=== PATIENT | male | born 1950 | race Caucasian/White ===

== ENCOUNTER 2019-07-21 15:27 | Inpatient (IN) | payer OTHER ==
[~2019-07-21] VITALS: Ht 188 cm; Wt 88.2 kg
[2019-07-21 16:49] LABS: Basophils # (auto) 0.1 uL; Basophils % (auto) 1.2 % (0.0-2.0); Eosinophils # (auto) 0.2 uL; Eosinophils % (auto) 2.8 % (0.0-7.0); Hematocrit 43.7 % (41.0-53.0); Hemoglobin 14.8 g/dL (13.5-17.5); Lymphocytes # (auto) 2.8 uL; Lymphocytes % (auto) 32.3 % (10.0-50.0); Mean Corpuscular Hemoglobin 29.6 pg (28.0-32.0); Mean Corpuscular Hgb Conc. 33.8 g/dL (32.0-36.0); Mean Corpuscular Volume 87.5 fL (80.0-100.0); Monocytes # (auto) 0.8 uL; Monocytes % (auto) 9.3 % (0.0-12.0); Neutrophils # (auto) 4.7 uL; Neutrophils % (auto) 54.4 % (37.0-80.0); Nucleated Red Blood Cells % 0.1 %; Platelet Count (auto) 327 10^3/uL (140-450); Red Cell Distribution Width 13.8 % (11.8-14.3); White Blood Cell 8.7 10^3/uL (4.4-10.8)
[2019-07-21 17:08] LABS: Alanine Aminotransferase 16 U/L (16-61); Albumin 3.8 g/dL (3.4-5.0); Aspartate Aminotransferase 18 U/L (15-37); BUN/Creatinine Ratio 21.8; Blood Urea Nitrogen 24 mg/dL (7-18); Calcium 8.8 mg/dL (8.5-10.1); Carbon Dioxide 27 mmol/L (21-32); GFR African American 85 mL/min; GFR Non-African American 71 mL/min; Glucose 94 mg/dL (74-106)
[2019-07-21 17:10] LABS: Anion Gap 5 (5-15); Bilirubin, Total 0.5 mg/dL (0.2-1.0); Chloride 107 mmol/L (98-107); Potassium 4.3 mmol/L (3.5-5.1); Sodium 139 mmol/L (136-145); Total Protein 7.4 g/dL (6.4-8.2)
[2019-07-21 17:13] LABS: Alkaline Phosphatase 79 U/L (45-117)
[2019-07-21 19:03] LABS: INR 1.02 (0.9-1.15); Partial Thromboplastin Time 28.3 sec (23.64-32.05)
[2019-07-21] MEDS ORDERED: METOPROLOL TARTRATE 25 MG TAB PO ONE (20:15)
[2019-07-21] MEDS ORDERED: ACETAMINOPHEN 325 MG TAB PO PRN (20:30)
[2019-07-21 20:52] VITALS: BP 153/85
--- NOTE | 2019-07-21 22:20 | NUR ---
Telemetry admit from ER [facility] admitted to Telemetry unit. Patient oriented to Mane Conway, primary RN, unit, room, bed, and unit policies regarding patient care and visiting hours. Patient now on continuous telemetry monitoring, tele box # 6 and telemetry reading on arrival to unit is SR 62. Patient weighed by bedscale and encouraged to call if they need something. All questions and concerns addressed, patient verbalized understanding.
[2019-07-21] MEDS: HYDROcodone-ACET 10/325MG TAB PO PRN (22:30)
[2019-07-21] MEDS: traZODone HCL 50 MG TAB PO SCH (22:31)
[2019-07-21 22:45] VITALS: BP 158/83
--- NOTE | 2019-07-21 22:45 | NUR ---
Patient refused his blood pressure medication that was scheduled for tonight. He states that he only takes his blood pressure medication in the mornings. The patient has been educated about medication refusal.
[2019-07-21] MEDS ORDERED: TRAZ100T2 PO (23:06)
[2019-07-21] MEDS ORDERED: MET25T PO (23:06)
[2019-07-21] MEDS ORDERED: GABA-339 PO (23:06)
[2019-07-21] MEDS ORDERED: INFLUENZA QUAD 2019-2020 0.5ml SYRG IM ONE (23:15)
--- NOTE | 2019-07-22 00:25 | NUR ---
IV insertion IV access obtained, via clean sterile technique by inserting 22 gauge catheter at the right hand after 1 attempt(s). IV secured properly. No trauma to site. Patient tolerated well.
[2019-07-22 04:44] VITALS: BP 143/73
--- NOTE | 2019-07-22 05:55 | NUR ---
IV insertion IV access obtained, via clean sterile technique by inserting 20 gauge catheter at right FA after 1 attempt(s). IV secured properly. No trauma to site. Patient tolerated well.
[2019-07-22] MEDS: ALBUTEROL SULF 2.5 MG/0.5ML(0.5%) NEB SOLN NEB PRN ×2 (07:57→20:51)
--- NOTE | 2019-07-22 07:57 | NUR ---
Respiratory note: PATIENT RECEIVED PRN BREATHING TX PER PT REQUEST. PATIENT IS AWAKE AND ALERT, NO RESPIRATORY DISTRESS NOTED. PATIENT BREATH SOUNDS ARE CLEAR T/O, HR 53, RR 18, SPO2 97% ON ROOM AIR. PATIENT IS AWARE TO HAVE RT PAGED IF BREATHING TX IS NEEDED. WILL CONTINUE TO MONITOR PATIENT.
--- NOTE | 2019-07-22 08:00 | NUR ---
Opening Shift Note Assumed care of patient, awake and alert. No S/S of distress/SOB or pain. With 2 building guard deputy sheriff at the bedside. Instructed on POC and to call for assist PRN, will continue to monitor for changes Q1hr and PRN.
[2019-07-22] MEDS ORDERED: ADENOSINE 68 MG in GIVE UN-DILUTED 0 ML IV STA (08:27)
[2019-07-22 09:00] VITALS: BP 155/75
[2019-07-22] MEDS ORDERED: FINASTERIDE 5 MG TAB PO SCH (10:00)
--- NOTE | 2019-07-22 10:30 | NUR ---
Adenosine stress test done. Waiting for results.
[2019-07-22] MEDS: DOXAZOSIN MESYL 2 MG TAB PO SCH (10:37)
[2019-07-22] MEDS: LISINOPRIL 20 MG TAB PO SCH (10:37)
[2019-07-22] MEDS: ASPirin-EC 81 mg tab PO SCH (10:38)
[2019-07-22] MEDS: GABAPENTIN 400 MG CAP PO SCH (10:38)
[2019-07-22 13:00] VITALS: BP 150/81
--- NOTE | 2019-07-22 16:03 | NUR ---
Patient just had a shower. Back to bed. With 2 [facility] guards at bedside.
[2019-07-22 17:19] VITALS: BP 131/95
[2019-07-22] MEDS: FINASTERIDE 5 MG TAB PO SCH (18:47)
--- NOTE | 2019-07-22 20:30 | NUR ---
Paged RT for breathing treatment, per pt request.
[2019-07-22] MEDS: traZODone HCL 50 MG TAB PO SCH (21:17)
[2019-07-22 22:00] VITALS: BP 144/76
--- NOTE | 2019-07-23 02:44 | NUR ---
Paged Dr. Martinez for pt's afib RVR, pt asymptomatic, awaiting call back.
[2019-07-23 05:00] VITALS: BP 153/82
--- NOTE | 2019-07-23 07:27 | NUR ---
PT. DECLINED MN. TX. THIS AM., NO RESP. DISTRESS OR SOB NOTED. BS. ARE CLEAR, HR 55,RR 18,SP02 95% ON RA. PT. STATES HE DOESN'T NEED ONE RIGHT NOW AND WILL CALL WHEN HE NEEDS IT. NO TX. GIVEN AT THIS TIME.
[2019-07-23 09:00] VITALS: BP_SYST 149; BP_SYST 157; BP_DIAS 100; BP_DIAS 84
[2019-07-23] MEDS: GABAPENTIN 400 MG CAP PO SCH (09:17)
[2019-07-23] MEDS: DOXAZOSIN MESYL 2 MG TAB PO SCH (09:18)
[2019-07-23] MEDS: LISINOPRIL 20 MG TAB PO SCH (09:18)
[2019-07-23] MEDS: ASPirin-EC 81 mg tab PO SCH (09:19)
--- NOTE | 2019-07-23 09:35 | NUR ---
DR. Antony BETTENCOURT ROUNDED ON PT. PLAN OF CARE DISCUSSED; PT IN AGREEMENT WITH PLAN. MADE AWARE OF A-FIB EPISODE DURING LAST NIGHT. ORDERS FOR METOPROLOL AND NPO AFTER MIDNIGHT FOR Friday07/26/19 FOR [facility] RECEIVED; INPUT.
[2019-07-23] MEDS: METOPROLOL TARTRATE 25 MG TAB PO SCH ×2 (09:47→22:09)
[2019-07-23 13:00] VITALS: BP 158/85
[2019-07-23] MEDS: ALBUTEROL SULF 2.5 MG/0.5ML(0.5%) NEB SOLN NEB PRN (15:50)
[2019-07-23 17:00] VITALS: BP 153/62
[2019-07-23] MEDS: FINASTERIDE 5 MG TAB PO SCH (18:14)
--- NOTE | 2019-07-23 18:38 | NUR ---
RT NOTE PT WAS SEEN BY RT FOR PRN HHN TX. PT STATES NO TREATMENT NEEDED AT THIS TIME. NO SOB OR DISTRESS NOTED. HR 82, RR 16, BS CLEAR/DIMINISHED, POX 94% ON R/A. PT AWARE TO CALL IF TREATMENT NEEDED IN THE NIGHT. CONT ORDERED Addendum: 07/23/19 at 1852 by Celia Oro RT Amended: Links added.
--- NOTE | 2019-07-23 20:05 | NUR ---
Opening Shift Note Assumed care of patient, awake and alert. No S/S of distress/SOB or pain. Instructed on POC and to call for assist PRN, will continue to monitor for changes Q1hr and PRN.
[2019-07-23 22:00] VITALS: BP 156/86
[2019-07-23] MEDS: traZODone HCL 50 MG TAB PO SCH (22:10)
[2019-07-24 05:00] VITALS: BP 142/77
--- NOTE | 2019-07-24 07:32 | NUR ---
Opening Shift Note Assumed care of patient, awake and alert. No S/S of distress/SOB. Pt complaints of pain rated at a 5/10 described as a "head ache". Bed in lowest and locked position with side rails up x2 and call light in reach. Instructed on POC and to call for assist PRN, will continue to monitor for changes Q1hr and PRN.
[2019-07-24 09:00] VITALS: BP 180/75
[2019-07-24] MEDS: DOXAZOSIN MESYL 2 MG TAB PO SCH (09:38)
[2019-07-24] MEDS: METOPROLOL TARTRATE 25 MG TAB PO SCH (09:39)
[2019-07-24] MEDS: GABAPENTIN 400 MG CAP PO SCH (09:39)
[2019-07-24] MEDS: ASPirin-EC 81 mg tab PO SCH (09:39)
[2019-07-24] MEDS: LISINOPRIL 20 MG TAB PO SCH (09:40)
[2019-07-24] MEDS ORDERED: METOPROLOL TARTRATE 25 MG TAB PO ONE (11:30)
[2019-07-24 13:00] VITALS: BP 148/76
[2019-07-24] MEDS: ALBUTEROL SULF 2.5 MG/0.5ML(0.5%) NEB SOLN NEB PRN (14:12)
[2019-07-24 17:00] VITALS: BP 143/76
[2019-07-24] MEDS: FINASTERIDE 5 MG TAB PO SCH (17:38)
--- NOTE | 2019-07-24 19:30 | NUR ---
CARE ENDORSED TO CECILIA RNLENI.
--- NOTE | 2019-07-24 19:59 | NUR ---
Opening shift note Patient in bed sleeping with eyes closed. Pt's respiration even and unlabored. No non verbal cues to pain noted and observed. Guards at bedside, will continue to monitor.
[2019-07-24 21:21] VITALS: BP 139/65
[2019-07-24] MEDS ORDERED: METOPROLOL TARTRATE 25 MG TAB PO SCH (22:00)
[2019-07-24] MEDS: HYDROcodone-ACET 10/325MG TAB PO PRN (22:02)
[2019-07-24] MEDS: traZODone HCL 50 MG TAB PO SCH (22:03)
[2019-07-25 02:57] VITALS: BP 134/56
[2019-07-25 04:06] VITALS: BP 144/76
[2019-07-25 08:00] VITALS: BP 154/88
--- NOTE | 2019-07-25 10:00 | NUR ---
Respiratory note: PATIENT SEEN FOR MED-NEB TX. MED-NEB NOT INDICATED AT THIS TIME HE IS IN NO ACUTE RESPIRATORY DISTRESS AND DENIES NEED. PATIENT INSTRUCTED TO CALL FOR RT IF HE FELT THE NEED FOR TX AT A LATER TIME. SPO2 94% R/A
[2019-07-25] MEDS: ASPirin-EC 81 mg tab PO SCH (10:13)
[2019-07-25] MEDS: METOPROLOL SUCCINATE XL 50 MG TAB PO SCH (10:15)
[2019-07-25] MEDS: LISINOPRIL 20 MG TAB PO SCH (10:16)
[2019-07-25] MEDS: GABAPENTIN 400 MG CAP PO SCH (10:16)
[2019-07-25] MEDS: DOXAZOSIN MESYL 2 MG TAB PO SCH (10:29)
[2019-07-25 12:00] VITALS: BP 138/76
--- NOTE | 2019-07-25 12:59 | NUR ---
Nutrition Assessment Notes please see attached link for complete assessment Est. Needs BW [id number] kcal (25-30 kcal/kgBW), 87-104 gms pro (1.0-1.2 gms/kgBW). Will continue to monitor pertinent labs and reassess nutrient need prn Addendum: 07/25/19 at [address] Amended: Links added.
[2019-07-25 16:59] VITALS: BP 164/81
[2019-07-25] MEDS: FINASTERIDE 5 MG TAB PO SCH (18:15)
[2019-07-25 18:22] LABS: Basophils # (auto) 0.1 uL; Basophils % (auto) 1.2 % (0.0-2.0); Eosinophils # (auto) 0.2 uL; Eosinophils % (auto) 1.7 % (0.0-7.0); Hematocrit 46.1 % (41.0-53.0); Hemoglobin 15.7 g/dL (13.5-17.5); Lymphocytes % (auto) 27.6 % (10.0-50.0); Mean Corpuscular Hemoglobin 29.8 pg (28.0-32.0); Mean Corpuscular Volume 87.5 fL (80.0-100.0); Monocytes # (auto) 0.9 uL; Monocytes % (auto) 8.6 % (0.0-12.0); Neutrophils # (auto) 6.6 uL; Neutrophils % (auto) 60.9 % (37.0-80.0); Nucleated Red Blood Cells % 0.1 %; Platelet Count (auto) 325 10^3/uL (140-450); Red Blood Cells 5.27 10^6/uL (4.5-5.90); Red Cell Distribution Width 14.1 % (11.8-14.3); White Blood Cell 10.8 10^3/uL (4.4-10.8)
[2019-07-25 18:49] LABS: BUN/Creatinine Ratio 18.8; Calcium 8.9 mg/dL (8.5-10.1); Potassium 4.5 mmol/L (3.5-5.1)
--- NOTE | 2019-07-25 20:10 | NUR ---
PT ASSESSED FOR PRN MED NEB TX. SPO2 92% ON RA, HR 65. PT DENIES ANY RESPIRATORY DISTRESS. NO TX INDICATED AT THIS TIME. PT IS AWARE TO HAVE RT PAGED IF TX NEEDED.
[2019-07-25 20:13] LABS: Urine WBC None Seen /hpf (0 - 3)
[2019-07-25 20:23] LABS: Urine Bacteria NONE SEEN /hpf (None Seen); Urine Blood Negative /uL (Negative); Urine Specific Gravity 1.009 (1.001-1.035)
[2019-07-25 21:00] VITALS: BP 147/75
[2019-07-25] MEDS: traZODone HCL 50 MG TAB PO SCH (22:43)
[2019-07-25] MEDS: HYDROcodone-ACET 10/325MG TAB PO PRN (22:43)
[2019-07-26 04:30] VITALS: BP 126/67
--- NOTE | 2019-07-26 06:11 | NUR ---
PT ASSESSED FOR PRN HHN TX. PT IS ON ROOM AIR, SPO2 91%, HR 46, RR 20. NO S/S OF RESPIRATORY DISTRESS. WILL CONTINUE TO MONITOR.
[2019-07-26] MEDS ORDERED: LIDOCAINE 2%HCL (LOCAL ANESTH.) INJ 20ML MDV ONE ×2 (07:24→08:28)
[2019-07-26] MEDS ORDERED: IODIXANOL 320MG/ML 100ML BTL IV ONE (07:24)
[2019-07-26] MEDS ORDERED: ANGIOMAX 250 MG VIAL IV ONE (07:36)
[2019-07-26] MEDS ORDERED: fentaNYL CITRATE 100 MCG/2 ML VL ONE (07:36)
[2019-07-26] MEDS ORDERED: MIDAZOLAM HCL 1MG/1ML-2 ML VIAL ONE (07:37)
[2019-07-26] MEDS ORDERED: SODIUM CHL 0.9% 0 ML ONE (07:37)
[2019-07-26 08:00] VITALS: BP 153/78
[2019-07-26] MEDS ORDERED: SODIUM CHLORIDE 0.9% 1,000 ML IV SCH (09:45)
[2019-07-26] MEDS: METOPROLOL SUCCINATE XL 50 MG TAB PO SCH (10:00)
[2019-07-26] MEDS: ASPirin-EC 81 mg tab PO SCH (10:00)
[2019-07-26] MEDS: GABAPENTIN 400 MG CAP PO SCH (10:51)
[2019-07-26] MEDS: DOXAZOSIN MESYL 2 MG TAB PO SCH (10:51)
[2019-07-26] MEDS: LISINOPRIL 20 MG TAB PO SCH (10:53)
[2019-07-26 12:00] VITALS: BP 143/71
[2019-07-26 16:38] VITALS: BP 133/71
[2019-07-26] MEDS: FINASTERIDE 5 MG TAB PO SCH (17:55)
[2019-07-26 18:22] VITALS: BP 153/78
--- NOTE | 2019-07-26 18:27 | NUR ---
RT NOTE: PT ON ROOM AIR SPO2 95% HR 82, RR 18, BS CLEAR WITH NO DISTRESS NOTED. PT NOTIFIED OF PRN MED NEB TX AND TO HAVE RT PAGED IF SOB OCCURS. NO TX INDICATED AT THIS TIME.
--- NOTE | 2019-07-26 18:30 | NUR ---
Discharge instructions given as ordered. Encourage to follow up with PCP as instructed. All questions and concerns addressed. Patient verbalized understanding. IV removed with catheter intact, pressure dressing applied. Telemetry unit returned to ICU. No distress noted at time of departure.
--- NOTE | 2019-07-26 19:30 | NUR ---
Report received re. male pt already discharged and awaiting transport to [facility] facility. Shackled to bed with guards x2 in room to bedside.
--- NOTE | 2019-07-26 21:08 | NUR ---
Pt being escorted off unit, ambulating, and accompanied by two guards. Pt's hands shackled and feet. Pt requesting pain meds and other meds due at 2200; had already been instructed this could not be done as he was discharged and awaiting transport back to [facility]. Color good; alert and oriented. Ambulating with no physical difficulty.
== END 2019-07-26 18:30 | DRG 287 ==
LOC: EDBD 15:27 → ER 15:39 → EEVIPCON 15:39 → TELE 15:40 → EAST 22:21 → TELE-E-ADS 07-22 01:48
PROVIDERS: ADMIT Internal Medicine; ATTEND Internal Medicine
PROC: 4A023N8 Measurement of Cardiac Sampling and Pressure, Bilateral, Percutaneous Approach (ICD-10-PCS; principal; 2019-07-26)
PROC: B2111ZZ Fluoroscopy of Multiple Coronary Arteries using Low Osmolar Contrast (ICD-10-PCS; 2019-07-26)
PROC: B2151ZZ Fluoroscopy of Left Heart using Low Osmolar Contrast (ICD-10-PCS; 2019-07-26)
PROC: B41F1ZZ Fluoroscopy of Right Lower Extremity Arteries using Low Osmolar Contrast (ICD-10-PCS; 2019-07-26)
PROC: 4A133BC Monitoring of Arterial Pressure, Coronary, Percutaneous Approach (ICD-10-PCS; 2019-07-26)
DX: R07.89 Other chest pain (principal); I10 Essential (primary) hypertension; E78.5 Hyperlipidemia, unspecified; N40.0 Benign prostatic hyperplasia without lower urinary tract symptoms; B19.20 Unspecified viral hepatitis C without hepatic coma; J44.9 Chronic obstructive pulmonary disease, unspecified; G62.9 Polyneuropathy, unspecified; Z87.891 Personal history of nicotine dependence; Z90.81 Acquired absence of spleen; Z79.899 Other long term (current) drug therapy
CPT/HCPCS: 36415; 71046; 78452; 80048; 80053; 81001; 83735; 83880; 84443; 84484; 85025; 85379; 85610; 85730; 86850; 86900; 86901; 93005; 93017; 93460; 94640; 94761; 96365; 99152; 99153; G0378; J0153; J2250; Q9967

== ENCOUNTER 2019-12-23 08:25 | Day surgery (SDC) | payer OTHER ==
[~2019-12-23] VITALS: Ht 30.5 cm; Wt 0.5 kg
[~2019-12-23 08:25] MED LIST: GABA-339 PO; MET25T PO; TRAZ100T3 PO
[2019-12-23] MEDS ORDERED: CIPROFLOXACIN 400MG/200ML 200 ML IV ONE (09:01)
[2019-12-23] MEDS ORDERED: fentaNYL CITRATE 100 MCG/2 ML VL ONE (10:43)
[2019-12-23] MEDS ORDERED: MIDAZOLAM HCL 1MG/1ML-2 ML VIAL ONE (10:43)
[2019-12-23] MEDS ORDERED: PROPOFOL 10 MG/ML 20 ML IV ONE (10:57)
[2019-12-23] MEDS ORDERED: fentaNYL CITRATE 100 MCG/2 ML VL IV PRN (11:00)
[2019-12-23] MEDS ORDERED: ONDANSETRON HCL 4 MG/2 ML VIAL IV PRN (11:00)
[2019-12-23] MEDS ORDERED: ePHEDrine SULFATE 50 MG/ML AMP IV PRN (11:00)
[2019-12-23] MEDS ORDERED: hydrALAZINE HCL 20 MG/ML VL IV PRN (11:00)
[2019-12-23 12:06] VITALS: BP 156/76
== END 2019-12-23 12:20 | disposition home or self-care (01) ==
LOC: SUR 08:25
PROVIDERS: ATTEND Urology
DX: N40.1 Benign prostatic hyperplasia with lower urinary tract symptoms (principal); C61 Malignant neoplasm of prostate; I10 Essential (primary) hypertension; J44.9 Chronic obstructive pulmonary disease, unspecified; K21.9 Gastro-esophageal reflux disease without esophagitis; F41.9 Anxiety disorder, unspecified; Z79.899 Other long term (current) drug therapy; Z88.8 Allergy status to other drugs, medicaments and biological substances; Z86.19 Personal history of other infectious and parasitic diseases
CPT/HCPCS: 55700; 88305; 88342; C1769; J0744; J2250; J2704; J3010; J7030